=== PATIENT | male | born 1970 | race Caucasian/White ===

== ENCOUNTER 2018-04-17 11:24 | Outpatient (CLI) ==
[2018-04-17 11:53] VITALS: BMI 22.1
== END 2018-04-17 11:37 | disposition critical access hospital (66) ==
LOC: AMBL 11:24
PROVIDERS: ATTEND Emergency Medicine
DX: R55 Syncope and collapse (principal); R53.1 Weakness; R00.0 Tachycardia, unspecified

== ENCOUNTER 2018-04-17 11:42 | Emergency (ER) ==
[2018-04-17 11:53] VITALS: TEMP 98.3; BMI 22.1
--- NOTE | 2018-04-17 12:40 | ED.PDOC ---
General ED Provider: Dr. HAO RAMOS Chief Complaint: Dizziness Stated Complaint: HEAT EXHAUSTION /PASSED OUT. 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 EMS RESPONDED/STARTED IV FLUIDS AND TRANSPORTED TO ER Time Seen by Physician: 12:15 Mode of Arrival: Stretcher Information Source: Patient, EMT Exam Limitations: No limitations Nursing and Triage Documentation Reviewed and Agree: Yes Does patient meet sepsis criteria?: No System Inflammatory Response Syndrome: Not Applicable Sepsis Protocol: For patient's 13 years and over: Temp is 96.8 and below OR 101 and greater Pulse >90 BPM Resp >20/minute Acutely Altered Mental Status Are patient's symptoms suggestive of a new infection, such as: -Pneumonia -Skin, Soft Tissue -Endocarditis -UTI -Bone, Joint Infection -Implantable Device -Acute Abdominal Infection -Wound Infection -Meningitis -Blood Stream Catheter Infection -Unknown Neurological Complaint Exam - Syncope/Near Syncope Complaint/Exam Onset/Duration: 1-2 HRS AGO Symptoms Are: Resolved Episodes Lasting: Minutes Number of Episodes: 1 Episodes Witnessed: Yes Loss of Consciousness: Yes Associated Head Trauma: No Activity at Onset: With exertion (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 Denies: Pain, Decreased oral intake, Vomiting, Diarrhea, GI blood loss, Short of air, Chest pain, Palpitations, Diaphoresis, Lightheadedness, Dizziness, AMS, Numbness, Headache, Seizure, Remote head trauma, Recent head trauma Cardiac Risk Factors: Reports: None GI Bleed Risk Factors: Reports: None Dysrhythmia Risk Factors: Reports: None Related Surgical History: Reports: None JVD Present: No Carotid Bruit Present: No Rectal Heme Positive: No (15) Focal Weakness: Present: None Focal Sensory Loss: Present: None [id number]: Normal Findings Differential Diagnoses: Hypovolemia, Seizure, Vasovagal Episode, Other (HEAT EXHAUSTION ) Quality Indicator For Non-Traumatic Chest Pain/Syncope: EKG Performed Review of Systems - Review Of Systems Constitutional: Reports: No symptoms, Weakness Eyes: Reports: No symptoms Ears, Nose, Mouth, Throat: Reports: No symptoms Respiratory: Reports: No symptoms Cardiac: Reports: No symptoms, Syncope GI: Reports: No symptoms : Reports: No symptoms Musculoskeletal: Reports: No symptoms Skin: Reports: No symptoms Neurological: Reports: No symptoms, Weakness Endocrine: Reports: No symptoms Hematologic/Lymphatic: Reports: No symptoms All Other Systems: Reviewed and Negative Past Medical History - Past Medical History Previously Healthy: Yes Endocrine: Reports: None Cardiovascular: Reports: None Respiratory: Reports: None Hematological: Reports: None Gastrointestinal: Reports: None Genitourinary: Reports: None Neuro/Psych: Reports: None, Other (Lt frontal blunt head trauma over 1 years ago /no residual symptoms) Musculoskeletal: Reports: None Cancer: Reports: None - Surgical History General Surgical History: Reports: None - Family History Family History: Reports: None - Social History Smoking Status: Current every day smoker, Light tobacco smoker Hx Substance Use: No Alcohol Screening: Occasionally Lives: In [place] Physical Exam - Physical Exam Appearance: Well-appearing, No pain distress, Well-nourished Ill-appearing: Mild Pain Distress: None Eyes: MARKY, EOMI, Conjunctiva clear ENT: Ears normal, Nose normal, Oropharynx normal Respiratory: Airway patent, Breath sounds clear, Breath sounds equal, Respirations nonlabored Cardiovascular: RRR, Pulses normal, No rub, No murmur GI/: Soft, Nontender, No masses, Bowel sounds normal, No Organomegaly Musculoskeletal: Normal strength, ROM intact, No edema, No calf tenderness Skin: Warm, Dry, Normal color, Diaphoretic Neurological: Sensation intact, Motor intact, Reflexes intact, Cranial nerves intact, Alert, Oriented Psychiatric: Affect appropriate, Mood appropriate Interpretation - Radiology Interpretation Radiology Interpretation By: Radiologist Radiology Results: Positive Exam Interpreted: CT Scan Exam Interpreted: Other (MRI - see interpretation ) Re-Evaluation - Re-Evaluation Time of Re-Evaluation: 14:30 Status: Improved Vital Signs Stable: Yes Appearance: Other Lungs: Clear Skin: Warm and Dry Neuro: Alert and Oriented X3 CV: RRR Additional Comments: CT Head pos for lt frontal lobe density-scheduling for MRI - Re-Evaluation Time of Re-Evaluation: 16:30 Status: Improved Vital Signs Stable: Yes Pain Level: none Additional Comments: Explained results Critical Care Note - Critical Care Note Total Time (mins): 60 Course - Course Hematology/Chemistry: 04/17/18 13:35 04/17/18 13:35 Orders, Labs, Meds: Lab Review 04/17/18 04/17/18 04/17/18 13:35 13:35 13:35 WBC 9.89 RBC 4.07 L Hgb 12.8 L Hct 37.4 L MCV 91.9 MCH 31.4 H MCHC 34.2 RDW Coeff of John 12.9 Plt Count 153 Immature Gran % (Auto) 0.5 Neut % (Auto) 86.9 Lymph % (Auto) 7.3 L [place] % (Auto) 4.8 Eos % (Auto) 0.1 Baso % (Auto) 0.4 Immature Gran # (Auto) 0.1 Neut # (Auto) 8.6 H Lymph # (Auto) 0.7 [place] # (Auto) 0.5 Eos # (Auto) 0.0 Baso # (Auto) 0.0 Sodium 136 Potassium 4.0 Chloride 100 Carbon Dioxide 25 Anion Gap 15.0 BUN 5 L Creatinine 0.89 Estimated GFR (MDRD) 91.00 BUN/Creatinine Ratio 5.61 Glucose 143 H Calcium 10.0 Total Bilirubin 1.6 H AST 204 H ALT 262 H Alkaline Phosphatase 51 Total Protein 7.7 Albumin 4.0 Globulin 3.7 Albumin/Globulin Ratio 1.08 Urine Color Urine Clarity Urine pH Ur Specific [place] Urine Protein Urine Glucose (UA) Urine Ketones Urine Blood Urine Nitrite Urine Bilirubin Urine Urobilinogen Ur Leukocyte Esterase Urine Microscopic RBC Ur Squamous Epith Cells Amorphous Sediment Urine Opiates Screen Negative Ur Oxycodone Screen Negative Urine Methadone Screen Negative Ur Propoxyphene Screen Negative Ur Barbiturates Screen Negative U Tricyclic Antidepress Negative Ur Phencyclidine Scrn Negative Ur Amphetamine Screen Negative U Methamphetamines Scrn Negative U Benzodiazepines Scrn Negative Urine Cocaine Screen Negative U Cannabinoids Screen Positive 04/17/18 13:35 WBC RBC Hgb Hct MCV MCH MCHC RDW Coeff of John Plt Count Immature Gran % (Auto) Neut % (Auto) Lymph % (Auto) [place] % (Auto) Eos % (Auto) Baso % (Auto) Immature Gran # (Auto) Neut # (Auto) Lymph # (Auto) [place] # (Auto) Eos # (Auto) Baso # (Auto) Sodium Potassium Chloride Carbon Dioxide Anion Gap BUN Creatinine Estimated GFR (MDRD) BUN/Creatinine Ratio Glucose Calcium Total Bilirubin AST ALT Alkaline Phosphatase Total Protein Albumin Globulin Albumin/Globulin Ratio Urine Color Yellow Urine Clarity Clear Urine pH 7.5 Ur Specific [place] 1.025 Urine Protein 2+ Urine Glucose (UA) Negative Urine Ketones Negative Urine Blood Trace-intact Urine Nitrite Negative Urine Bilirubin Negative Urine Urobilinogen 1.0 Ur Leukocyte Esterase Negative Urine Microscopic RBC 0-2 Ur Squamous Epith Cells 0-2 Amorphous Sediment 4+ Urine Opiates Screen Ur Oxycodone Screen Urine Methadone Screen Ur Propoxyphene Screen Ur Barbiturates Screen U Tricyclic Antidepress Ur Phencyclidine Scrn Ur Amphetamine Screen U Methamphetamines Scrn U Benzodiazepines Scrn Urine Cocaine Screen U Cannabinoids Screen Orders Category Date Time Status EKG-(ED ONLY) Stat CARDIO 04/17/18 13:12 Completed CBC W/ AUTO DIFF Stat LAB 04/17/18 13:35 Completed CMP [COMPREHENSIVE METABOLIC PANEL] Stat LAB 04/17/18 13:35 Completed UA [URINALYSIS C & S IF INDICATED] Stat LAB 04/17/18 13:35 Completed URINE DRUG SCREEN (RAPID FOR ED) [DRUG SCREEN, URINE, LAB 04/17/18 13:35 Completed RAPID] Stat CT HEAD W/O CONTRAST Stat RADS 04/17/18 13:12 Completed MRI BRAIN W/WO CONTRAST Stat RADS 04/17/18 14:22 Completed Vital Signs: Temp Pulse Resp BP Pulse Ox 04/17/18 17:06 88 16 120/67 96 04/17/18 11:44 98.3 F 106 H 16 129/92 H 98 Departure - Departure Time of Disposition: 17:30 Disposition: HOME SELF-CARE Discharge Problem: Vasovagal syncope, Heat causing collapse Instructions: Heat Exhaustion (ED), Syncope (ED) Condition: Good Pt referred to PMD for follow-up: Yes (See PCP in 1 week for eval and referral to Neurology) IPMP verified?: No Additional Instructions: Stay well hydrated Avoid excessive heat exposure See PCP for further evaluation Allergies/Adverse Reactions: Allergies No Known Allergies Allergy (Verified 04/17/18 11:51) Home Medications: Ambulatory Orders 1 [No Reported Medications] 04/17/18 Disposition Discussed With: Patient
--- NOTE | 2018-04-17 14:14 | CT ---
EXAM: CT of the head without contrast History: Syncope. Comparison: None available. Technique: Multiplanar CT images through the head were obtained without the administration of IV con trast Findings: 2.2 cm mucous retention cyst or polyp within the left maxillary sinus. Mastoid air cells are clear in general. No acute calvarial abnormalities. Intracranially the ventricular and cisternal spaces are normal in size, shape and configuration for a patient of this age. No midline shift and no hydrocephalus. No acute intracranial hemorrhage or ab normal extraaxial fluid collections. 2.1 cm hypodensity within the left frontal lobe. Impression: 1. No acute intracranial hemorrhage. 2. Indeterminate left frontal lobe hypodensity could represent age indeterminate infarction or under lying brain mass. Recommend further evaluation with MRI brain with and without contrast. 3. Mucous retention cyst or polyp within the left maxillary sinus
--- NOTE | 2018-04-17 16:20 | MRI ---
MRI the brain without and with contrast . HISTORY: Abnormal left frontal lobe hypodense lesions seen on CT examination obtained for syncope. COMPARISON: None of this type. CT 04/17/2018. PROCEDURE: Multiplanar, multisequence imaging the brain performed without and with contrast. 13 ml o f Omniscan FINDINGS: The CSF spaces, including the ventricles, sulci and cisterns and surrounding meninges demo nstrate no evidence of abnormal extra-axial fluid collections or hematomas or meningeal based lesions . The cerebral hemispheres demonstrate no mass or mass effect or acute hemorrhage or infarct. The p eriventricular and Centrum semiovale white matter demonstrate an asymmetric region of increased T2W / FLAIR signal in the white matter of the left frontal lobe anterolateral to the frontal horn of the l ateral ventricle with no associated restricted diffusion or enhancement or mass effect. The examinati on demonstrates more modest similar signal adjacent to the frontal horn of the right lateral ventricl e and demonstrates a few scattered foci of increased T2W / FLAIR signal elsewhere within the centrum. The major vascular structures at the level of the [place] of [place], including the internal carotid and basilar arteries and their major branches demonstrate detectable flow voids and grossly normal an atomy at the present level of resolution. The major posterior fossa structures including the cerebel lar hemispheres and vermis appear normal for age. The brainstem appears normal. The petrous pyramid s and mastoid air cells appear normal. The seventh and eighth nerve complexes, IACs and visualized i nner ear structures are symmetric and normal in appearance at standard resolution ( no high resoluti on images are included ).. The cervicomedullary junction and region of the foramen magnum demonstrat e no evidence of tonsillar ectopy or Chiari malformation. The region of the sella turcica and contai alicia pituitary gland demonstrates no intra or supra sellar mass or mass effect. The pituitary gland ap pears normal in size. The orbits and orbital contents appear symmetric and within normal limits. T he paranasal sinuses appear normally developed and aerated. There is a large retention cyst in the le ft maxillary sinus and a small probable retention cyst or focus of mucoid material in the frontal sin us to the right of midline. Post contrast images demonstrate no enhancing lesions in the brain or men inges. IMPRESSION: 1. The MRI examination demonstrates generally normal cerebral and cerebellar anatomy for a patient th is age. 2. The T2W and FLAIR images demonstrate a region of increased signal in the left frontal lobe anterio r lateral to the frontal horn of the lateral ventricle corresponding to the finding on the patient's CT examination. There is no evidence of associated mass or mass effect or enhancement. The periventr icular and centrum semiovale white matter otherwise demonstrate a few scattered foci of increased T2W / FLAIR signal and more modest increased signal in the white matter of the right frontal lobe. 3. The differential is broad and would include infectious processes such as encephalitis, low grade t umor, preexisting white matter disease unrelated to the patient's syncope (there are more modest but similar signal changes on the right), metabolic disease, etc. 4. Postcontrast images demonstrate no enhancing lesions in the brain meninges elsewhere. 5. Additional details are contained in the report. Results faxed to the emergency room at 4:14 p.m.
[2018-04-17 17:07] VITALS: BP 120/67
[2018-04-17] MEDS ORDERED: SODIUM CHLORIDE 1,000 ML IV STA (18:11)
== END 2018-04-17 18:14 | disposition home or self-care (01) ==
LOC: ED 11:42
DX: R55 Syncope and collapse (principal); T67.5XXA Heat exhaustion, unspecified, initial encounter; R53.1 Weakness; F17.210 Nicotine dependence, cigarettes, uncomplicated
CPT/HCPCS: 36415; 80053; 80306; 81001; 85025; 93005; 93010; 96360; 99283